=== PATIENT | female | born 1930 | race Caucasian/White ===

== ENCOUNTER → 2017-03-19 | Outpatient (CLI) | payer MEDICARE, BC ==
[~2017-03-19] MED LIST: B100 BALANCE1 TAB.S1 PO; BYSTOLIC5 MG PO; CARDIZEM CD120 M1 PO; CYCLOBENZAPRINE5 MG PO; ESTRACE PO; FISH OIL 1,0001 EAC3 PO; FLEXERIL10 M1 PO; FUROSEMIDE40 MG PO; HYDRALAZINE HCL25 MG PO; LIPITOR20 MG PO; LISINOPRIL5 MG PO; MEDROL DOSEPAK4 MG PO; METOPROLOL TART25 MG PO; MOBIC PO; ZESTORETIC 20-1 EAC1 PO; ZOFRAN PO; ZYRTEC5 M2 PO
[2017-03-19 13:49] LABS: BUN/CREATININE RATIO 17.5; CALCIUM SERUM 9.5 mg/dL (8.4-10.2); CREATININE SERUM 0.8 mg/dL (0.6-1.4); GLOM FILT RATE Estimated 67.3 mL/min (>60); MAGNESIUM 1.6 mg/dL (1.6-3.0)
== END | disposition home or self-care (01) ==
LOC: CLAB 12:38
DX: I10 Essential (primary) hypertension (principal)
CPT/HCPCS: 36415; 80048; 83735